=== PATIENT | female | born 1980 | race Caucasian/White ===

== ENCOUNTER 2017-06-11 07:26 | Day surgery (SDC) | payer BC ==
[2017-06-05 14:27] LABS: Absolute Lymphocytes (CBC) 2.6 K/uL (0.7-4.9); Absolute Monocytes 0.7 K/uL (0.1-1.3); Absolute Neutrophil 3.7 K/uL (1.8-8.0); Basophils % 0.6 % (0-1.3); Hematocrit 38.6 % (36.0-45.0); Lymphocytes % 36.3 % (15.3-44.8); MCH 22.2 pg (27.0-35.0); MCV 71.9 fL (80-100); MPV 10.2 fL (7.6-11.3); Monocytes % 9.9 % (3.3-12.3); RBC Red Blood Cell Count 5.37 M/uL (3.86-4.86)
[2017-06-11] MEDS ORDERED: Ringers Lactate 1,000 ML IV ONE (07:41)
[2017-06-11] MEDS ORDERED: LIDOCAINE 1% MPF 5 ML VIAL ONE (07:45)
[2017-06-11] MEDS ORDERED: MIDAZOLAM HCL 2 MG/2 ML INJ ONE ×2 (07:45→08:39)
[2017-06-11] MEDS ORDERED: PROPOFOL 200 MG/20 ML VIAL IV ONE (07:45)
[2017-06-11] MEDS ORDERED: FENTANYL CITR 100 MCG/2 ML ONE (07:46)
[2017-06-11 07:49] VITALS: O2SAT 100
[2017-06-11] MEDS ORDERED: NA CHLORIDE 0.9% 1,000 ML ONE (07:56)
[2017-06-11] MEDS ORDERED: LIDOCAINE 1% W/EPI 1:100,000 MDV 50 ML VIAL ONE (07:56)
[2017-06-11] MEDS ORDERED: KETOROLAC 30 MG/ML INJ ONE (08:46)
[2017-06-11] MEDS ORDERED: ONDANSETRON 4 MG/2 ML VIAL ONE (08:46)
[2017-06-11] MEDS ORDERED: PROMETHAZINE 25 MG/ML VIAL ONE (09:00)
[2017-06-11] MEDS ORDERED: MEPERIDINE HCL 25 MG/0.5 ML ONE (09:01)
[2017-06-11 10:05] VITALS: BP 104/56; TEMP 97.4
--- NOTE | 2017-06-11 20:20 | OP ---
Date of Procedure: 06/11/2017 Surgeon: Constance Larkin MD Preoperative Diagnoses: Heavy menstrual bleeding and anemia. Postoperative Diagnoses: Heavy menstrual bleeding and anemia. Procedures Performed: Hysteroscopy, dilation and curettage. Anesthesia: MAC plus paracervical block. Specimens: Endometrial curettings. Complications: No complications. Drains: No drains. Condition: The patient's condition is stable. Indications: The patient is a 36-year-old with heavy periods, thickened lining, need endometrial felicita pling due to the severe bleeding that she has. Due to the thickening, there was a possibility that t hey could be an intracavity lesion that needed polypectomy, so she was brought to the OR for hysteros copy and D and C. Description Of Procedure: After informed consent was verified, she was taken back to the OR, placed in a supine fashion on the operating table. After MAC was given, she was placed in a dorsal lithotom y position. Pelvic exam was performed. A speculum was used to expose the cervix, injected with 1% l idocaine with 1:100,000 epinephrine, 10 cc at 12 o'clock position, and 5 cc each at 4 and 8 o'clock p ositions of the cervicovaginal junction for a paracervical block. Prep x3 with Betadine was done. A nterior lip grasped with 2 Allis clamps. Direct hysteroscopy with a SlimLine hysteroscope 30-degree lens and normal saline was done. The uterine cavity was entered without any problems. The tubal ost ia were visualized on both sides. The endometrium appeared to be thickened globally. No intracavita ry lesions. The scope was pulled out. Curettings were performed. There was optimal amount of tissu e that was obtained for biopsy. The instruments were removed. Instrument, needle, and sponge counts were done and were correct at th e end of the case. The patient tolerated the procedure well. She was given Toradol prior to waking up. She will see me in 1 week for results. KARINA/RIO Voice ID: [id number] Report ID: [id number]
== END 2017-06-11 10:07 | disposition home or self-care (01) ==
LOC: OR 07:26
PROVIDERS: ATTEND Obstetrics & Gynecology
PROC: 0UJD8ZZ Inspection of Uterus and Cervix, Via Natural or Artificial Opening Endoscopic (ICD-10-PCS; 2017-06-11)
PROC: 0UDB7ZX Extraction of Endometrium, Via Natural or Artificial Opening, Diagnostic (ICD-10-PCS; principal; 2017-06-11 07:30)
DX: N92.0 Excessive and frequent menstruation with regular cycle (principal); D64.9 Anemia, unspecified; Z98.84 Bariatric surgery status; Z90.49 Acquired absence of other specified parts of digestive tract; Z80.41 Family history of malignant neoplasm of ovary; Z80.49 Family history of malignant neoplasm of other genital organs; Z83.3 Family history of diabetes mellitus; Z82.49 Family history of ischemic heart disease and other diseases of the circulatory system
CPT/HCPCS: 36415; 81025; 85025; 88305; J2175; J2250; J2405; J2550; J3010; J7030

== ENCOUNTER 2017-07-25 10:13 | Day surgery (SDC) | payer BC ==
[2017-07-22 11:48] LABS: Absolute Lymphocytes (CBC) 2.2 K/uL (0.7-4.9); Absolute Monocytes 0.6 K/uL (0.1-1.3); Absolute Neutrophil 3.8 K/uL (1.8-8.0); Basophils % 0.7 % (0-1.3); Eosinophils % 1.7 % (0-4.4); Hematocrit 36.4 % (36.0-45.0); Lymphocytes % 33.2 % (15.3-44.8); MCH 25.1 pg (27.0-35.0); MCV 76.9 fL (80-100); MPV 9.1 fL (7.6-11.3); Monocytes % 8.3 % (3.3-12.3); RBC Red Blood Cell Count 4.73 M/uL (3.86-4.86)
[2017-07-22 12:13] LABS: Urine Appearance CLEAR; Urine Bilirubin NEGATIVE (NEG); Urine Blood 3+ (NEG); Urine Color YELLOW; Urine Glucose NEGATIVE (NEG); Urine Protein NEGATIVE (NEG); Urine Specific Gravity 1.015 (1.005-1.030)
[2017-07-22 12:19] LABS: Urine Microscopic Reflex ORDER UMIC
[2017-07-22 12:44] LABS: Blood Morphology Comment NOT SEEN (NOT SEEN); Platelet Estimate ADEQ; Urine White Blood Cell Casts OK
[2017-07-22 12:47] LABS: Urine Bacteria <20 /HPF (<20); Urine Culture Reflex Order NOT NEEDED; Urine RBC >50 /HPF (NONE SEEN)
[2017-07-25] MEDS ORDERED: Ringers Lactate 1,000 ML IV ONE (10:27)
[2017-07-25] MEDS ORDERED: SCOPOLAMINE HYDROBROMIDE PATCH TD ONE (10:27)
[2017-07-25] MEDS ORDERED: CEFAZOLIN/SWI 1gm 0 GM/0 ML SYR ONE (10:27)
[2017-07-25] MEDS: CEFAZOLIN/SWI 2gm 2 GM/20 ML SYR IV SCH ×2 (11:25→12:55)
[2017-07-25] MEDS ORDERED: PROPOFOL 200 MG/20 ML VIAL IV ONE (12:32)
[2017-07-25] MEDS ORDERED: FENTANYL CITR 100 MCG/2 ML ONE ×3 (12:33→14:36)
[2017-07-25] MEDS ORDERED: ROCURONIUM 50 MG/5 ML VIAL IV ONE (12:33)
[2017-07-25] MEDS ORDERED: MIDAZOLAM HCL 2 MG/2 ML INJ ONE (12:34)
[2017-07-25] MEDS ORDERED: ONDANSETRON HCL 40 MG/20 ML VIAL ONE (12:34)
[2017-07-25] MEDS ORDERED: LIDOCAINE 1% MPF 2 ML AMPULE ONE (12:36)
[2017-07-25] MEDS: NA CHLORIDE 0.9% 1,000 ML ONE ×3 (12:44→13:02)
[2017-07-25] MEDS: Ringers Lactate 1,000 ML IV ONE ×2 (14:50→15:31)
[2017-07-25] MEDS ORDERED: GLYCOPYRROLATE 0.2 MG/ML SYR ONE (15:41)
[2017-07-25] MEDS ORDERED: NEOSTIGMINE 1 MG/ML -5 ML SYRINGE ONE (15:43)
[2017-07-25] MEDS: MORPHINE 4 MG/ML SYR ONE ×4 (16:50→17:07)
[2017-07-25] MEDS ORDERED: MEPERIDINE HCL 25 MG/0.5 ML ONE (17:13)
[2017-07-25] MEDS: MIDAZOLAM HCL 2 MG/2 ML INJ ONE ×2 (17:24→17:38)
[2017-07-25] MEDS ORDERED: ONDANSETRON 4 MG/2 ML VIAL ONE (18:09)
[2017-07-25] MEDS ORDERED: HYDROCODONE/APAP 5/325 MG TAB ONE (18:41)
[2017-07-25 18:48] VITALS: BP 126/71; TEMP 98.2; O2SAT 100
--- NOTE | 2017-07-26 03:08 | OP ---
Date of Procedure: 07/25/2017 Surgeon: Constance Larkin MD Network Infrastructure Architect: Melida Fisher. Preoperative Diagnoses: Pelvic pain, heavy periods, regular cycles, deep dyspareunia, and dysmenorrh ea. Postoperative Diagnoses: Pelvic pain, heavy periods, regular cycles, deep dyspareunia, and dysmenorr hea, right tubo-ovarian adhesions, right hydrosalpinx, and uterine prolapse. Procedures Performed: 1.Total laparoscopic hysterectomy, bilateral salpingectomy. 2.Lysis of right ovarian, tubal, and omental adhesions to the bladder and the uterus. 3.Uterosacral ligament suspension. 4.Colpopexy. 5.Cystoscopy. Anesthesia: General. Specimens: Uterus, bilateral tubes. Complications: None. Drains: None. Specimens: Uterus and tubes. Findings: Uterus was anteflexed, slightly enlarged. There were dense bladder adhesions to the oment um and the right ovary. The right tube and ovary were adhered to the anterior broad ligament, anteri or part of the uterus and these were all together adhered with the omentum. The ovary on the left side was unremarkable. The tube on the left side had adhesions to the anterior abdominal wall and left lower quadrant. The uterine prolapse was present. Her point C was 2 minus 3. After the hysterectomy was done, it was deemed to be necessary to do the suspension. If it was not then that would increase the risk of post hysterectomy wall prolapse, so we went ahead and did the procedure. Indications: The patient is a 36-year-old with heavy periods evaluated for her dysmenorrhea and pelv ic pain. She had 2 prior C-sections, counseled her on all options. She finally decided to have hyst erectomy, bilateral salpingectomy. After presenting all the recovery time and complications of the p rocedure, the patient wanted to proceed with this. Description Of Procedure: After informed consent was verified, she was brought back to the OR, 2 g o f Ancef was given, placed in supine fashion on the operating table after general anesthesia was given . Her arms were tucked by the side, and she was placed in a dorsal lithotomy position using Adalberto st irrups. Pelvic exam performed. Abdomen, vulva, vagina, and perineum prepped and draped in a sterile fashion. Isaac was placed to drain the bladder and attached to cystotubing and hooked up to an LR b ag with 300 cc empty. A large VCare was introduced in the uterus and fixed in place, and this area w as draped. A 1 cm infraumbilical incision was made with a scalpel. The fascia was dissected after being exposed . It was incised and tagged. The peritoneal cavity was entered. Danielle was introduced. Site of en try was checked. Upper abdominal surface was unremarkable. Minimal omental adhesions to the anterio r abdominal wall above the level of the umbilicus. However, below the level of the umbilicus, there were several adhesions starting in the left lower quadrant and midline anterior abdominal wall along the prior scar. Then there were dense omental adhesions to the ovary on the right side, wh ich seemed to be encased, and this was all attached to the bladder anteriorly. They were attached to the anterior broad ligament and anterior wall of the uterus. The tube and the round ligament were all entangled and very thickened. A 5 mm left lower quadrant and 10 mm suprapubic ports were placed under direct vision. Before the 10 mm was placed, the adhesions had to be taken down with a 5 mm port on the left side. A 5 mm LigaSur e was used to take this down. Sharp and blunt dissection were done and then the omentum was pulled d own from the area where the trocar would be placed. Once this was done, a 10 mm port was placed. We then performed a removal of adhesions systematically, push-spread technique had to be used to separa te the omentum from the peritoneum over the bladder. Once this was dissected, cautery was used appro priately to achieve hemostasis, but otherwise struck with the cutting part of the LigaSure. Then the adhesions were cut down from the bladder and retracted laterally. Then from the lateral aspect, the adhesions were taken down and retracted superiorly and medially. The posterior broad ligament adhes ions were opened up with the push-spread technique without any problems, and the peritoneum was accid entally opened up; however, took down the omentum from this area and retracted superiorly. The ovary was completely encased in the adhesions and so the ovary was dissected and retracted inferiorly, the tube had to be released from it in order for me to achieve this. So the tube had to be taken down w ith the help of the LigaSure from medial proximal and to the level of the adhesions. Once they were taken down, then ovary was densely attached to the right round ligament, so lateral to the ovary just inferior to the right round ligament, a window was made in the peritoneum, and window placed on the superior side and round ligament was cauterized and cut. However, the ovary had to be saved, so the ovary was dissected from anterior broad ligament in order to separate it inferiorly. Utero-ovarian l igament had to be taken down in order for this to happen. This took at least the first 50% of the ca se. The bladder adhesions were all released from the lower aspect of the uterine segment, that had g renaldo attached at the area of the low-transverse incision. Once these bladder adhesions were taken d own with push-spread technique and vesicovaginal space was entered, the bladder was dissected inferio rly. Then the hysterectomy was started. The left tubo-ovarian ligament, the right and the left utero-ovarian ligament, mesosalpinx, round lig ament were all taken down with the LigaSure, broad ligament and both leads were opened up. The anter ior was already dissected, so posterior broad was dissected to the level of the left uterosacral, the n vessels were skeletonized to isolate the vessels. On the opposite side, a similar dissection was performed to open up the posterior peritoneum, taken t o the level of the distal right uterosacral ligament. Then anteriorly, the broad ligament was opened up, and it was taken down to join the bladder flap. Once this was done, we moved down to retract th e bladder inferiorly on all aspects then went back up to skeletonize the broad ligament on the right side. The vessels were identified. The vessels were taken down on the right side first then on the left side. Cardinal ligaments were also taken on both sides. The vessels on the left side were also taken down. Circumferential colpotomy was performed to detach specimen. On the left side there was an area right above the uterosacral that appeared to be thickened, but no amount of cervix was left here. This was completely vaginal epithelium. Once this was completed, removal of the uterus, tubes were dissected laterally from the anterior abdominal wall, the broad ligament opened up to take down the blood supply to the tubes, then the tubes were pressured on the left side then the right side ta yannick down the distal hydrosalpinx. Once all the specimens were detached, they were removed through t he suprapubic port after draining the hydrosalpinx on the right side, it was pulled out. Thorough irrigation and suction were performed. The ureters were in their anatomical location withou t any distortion as were confirmed at the beginning of the case even after the hysterectomy was done, and the vaginal cuff closure was done after the vaginal occlusion bulb was placed with the help of 0 Vicryl simple stitches on both ends and [id number] in the middle. Since there was uterine vagi nal wall prolapse even after this was done, the uterosacral ligaments were reattached to the posterio r rectovaginal septum with the help of 0 Vicryl suture that went from the left distal uterosacral lig ament, posterior rectovaginal septum, and the right uterosacral ligament. Once all these were tied d own, there was excellent support of the vaginal cuff. The apex was at -7. The patient did very well . The pedicles were all visualized and were completely hemostatic. All the trocars were removed under direct vision. There was no electrical, mechanical, or thermal in jury to the ureters. The fascia was closed with the umbilicus after removing all the trocars under d irect vision without any complications with 0 Vicryl, using the sutures that were placed to retain to hook to the fascial edges, 4-0 Vicryl interrupted to close the incisions. Before this was done, josiah t on to perform a cystoscopy. The cystoscopy was performed with a 30-degree lens, normal saline for distention medium, and there was excellent efflux of urine from both ureteric orifices. No evidence of any other bladder trauma or foreign bodies. However, on the internal urethral meatus on the right side there appeared to be a little flap of question for, suspicious for TCC. So, I took a picture. The urethra was unremarkable. Bladder was drained. The vaginal occlusion bulb was removed. Isaac was left. The patient tolerated the procedure well. Instrument, needle, and sponge counts x3 were correct at t he end of the case. She will recover and be discharged home, and she will follow up with me in 1 week. LORETTA Voice ID: [id number] Report ID: [id number]
== END 2017-07-25 19:32 | disposition home or self-care (01) ==
LOC: OR 10:13
PROVIDERS: ATTEND Obstetrics & Gynecology
PROC: 0UT74ZZ Resection of Bilateral Fallopian Tubes, Percutaneous Endoscopic Approach (ICD-10-PCS; 2017-07-25)
PROC: 0USG7ZZ Reposition Vagina, Via Natural or Artificial Opening (ICD-10-PCS; 2017-07-25)
PROC: 0DNU4ZZ Release Omentum, Percutaneous Endoscopic Approach (ICD-10-PCS; 2017-07-25)
PROC: 0UT94ZZ Resection of Uterus, Percutaneous Endoscopic Approach (ICD-10-PCS; principal; 2017-07-25 11:30)
DX: N92.0 Excessive and frequent menstruation with regular cycle (principal); N81.4 Uterovaginal prolapse, unspecified; K66.0 Peritoneal adhesions (postprocedural) (postinfection); N94.12 Deep dyspareunia; N94.6 Dysmenorrhea, unspecified; N73.6 Female pelvic peritoneal adhesions (postinfective); N70.11 Chronic salpingitis; Z98.84 Bariatric surgery status; Z90.49 Acquired absence of other specified parts of digestive tract; Z80.41 Family history of malignant neoplasm of ovary; Z80.49 Family history of malignant neoplasm of other genital organs; Z83.3 Family history of diabetes mellitus; Z82.49 Family history of ischemic heart disease and other diseases of the circulatory system
CPT/HCPCS: 36415; 81003; 81015; 81025; 85025; 86850; 86900; 86901; 88307; J0690; J2001; J2175; J2250; J2405; J2710; J3010; J7030

== ENCOUNTER 2018-08-09 05:38 | Emergency (ER) | payer BC ==
--- OUTSIDE RECORDS SUMMARY | 2018-08-09 05:40 | XMS REPORT ---
:1980 Author Organization [facility] Address [address] [place] [address] Dr. Lobato [address] [place] [id number] Care Team Providers Name Role Phone Unavailable Unavailable Unavailable Problems This patient has no known problems. Allergies, Adverse Reactions, Alerts This patient has no known allergies or adverse reactions. Medications This patient has no known medications.
--- NOTE | 2018-08-09 06:15 | EDPHYS ---
Physician Documentation [facility] Name: Ariadna Okeefe Age: 37 yrs Sex: Female : 1980 Arrival Date: 08/09/2018 Time: 05:51 Bed 7 Private MD: ED Physician Sahil Rome HPI: 08/09 06:09 This 37 yrs old Female presents to ER via Ambulatory with complaints of Mouth kb Swelling. 06:09 The patient presents with swelling. The problem is located in the upper lip and lower kb lip. Onset: The symptoms/episode began/occurred 3 hour(s) ago. Duration: The symptoms are continuous, and are unchanged since they started. Modifying factors: The symptoms are alleviated by nothing, the symptoms are aggravated by nothing. Associated signs and symptoms: Pertinent positives: swelling, Pertinent negatives: anorexia, chills, dysphagia, fever, inability to eat, nausea, pain, redness in area, vomiting. Severity of symptoms: At their worst the symptoms were moderate, in the emergency department the symptoms are unchanged. The patient has not experienced similar symptoms in the past. The patient has not recently seen a physician. Pt reports her lips started swelling 3 hours ago. States she had margaritas, strawberries, and junk foods but nothing she hasn't had before. Denies any new substances. Denies shortness of breath, throat irritation. . 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 - Social history:: Smoking status: Patient/guardian denies using tobacco. - Ebola Screening: : No symptoms or risks identified at this time. ROS: 06:09 Constitutional: Negative for fever, chills, and weight loss, Neck: Negative for injury, kb pain, and swelling, Cardiovascular: Negative for chest pain, palpitations, and edema, Respiratory: Negative for shortness of breath, cough, wheezing, and pleuritic chest pain, Abdomen/GI: Negative for abdominal pain, nausea, vomiting, diarrhea, and constipation, Back: Negative for injury and pain, MS/Extremity: Negative for injury and deformity, Neuro: Negative for headache, weakness, numbness, tingling, and seizure. 06:09 ENT: Positive for lip swelling. Exam: 06:09 Constitutional: This is a well developed, well nourished patient who is awake, alert, kb and in no acute distress. Head/Face: Normocephalic, atraumatic. Chest/axilla: Normal chest wall appearance and motion. Nontender with no deformity. No lesions are appreciated. Cardiovascular: Regular rate and rhythm with a normal S1 and S2. No gallops, murmurs, or rubs. Normal PMI, no JVD. No pulse deficits. Respiratory: Lungs have equal breath sounds bilaterally, clear to auscultation and percussion. No rales, rhonchi or wheezes noted. No increased work of breathing, no retractions or nasal flaring. Abdomen/GI: Soft, non-tender, with normal bowel sounds. No distension or tympany. No guarding or rebound. No evidence of tenderness throughout. MS/ Extremity: Pulses equal, no cyanosis. Neurovascular intact. Full, normal range of motion. Neuro: Awake and alert, GCS 15, oriented to person, place, time, and situation. Cranial nerves II-XII grossly intact. Motor strength 5/5 in all extremities. Sensory grossly intact. Cerebellar exam normal. Normal gait. 06:09 ENT: Mouth: Lips: swelling, Posterior pharynx: is normal, airway is patent. Vital Signs: 06:01 BP 153 / 89; Pulse 73; Resp 18; Temp 97.9; Pulse Ox 100% on R/A; Weight 122.47 kg; lp1 Height 5 ft. 8 in. (172.72 cm); Pain 6/10; 06:01 Body Mass Index 41.05 (122.47 kg, 172.72 cm) lp1 MDM: 05:54 Patient medically screened. kb 06:13 Data reviewed: vital signs, nurses notes. Data interpreted: Pulse oximetry: on room air kb is 100 %. Interpretation: normal. Counseling: I had a detailed discussion with the patient and/or guardian regarding: the historical points, exam findings, and any diagnostic results supporting the discharge/admit diagnosis, the need for outpatient follow up, a family practitioner, to return to the emergency department if symptoms worsen or persist or if there are any questions or concerns that arise at home. Administered Medications: 06:26 Drug: Benadryl 25 mg Route: PO; aa1 06:28 Follow up: Response: Medication administered at discharge. aa1 06:28 Drug: Pepcid 20 mg Route: PO; aa1 06:29 Follow up: Response: Medication administered at discharge. aa1 06:28 Drug: predniSONE 40 mg Route: PO; aa1 06:29 Follow up: Response: Medication administered at discharge. aa1 Disposition: 08/09/18 06:14 Discharged to Home. Impression: Localized swelling, mass and lump, head - lips. - Condition is Stable. - Discharge Instructions: Allergies, [id number]. - Prescriptions for Pepcid 20 mg Oral Tablet - take 1 tablet by ORAL route every 12 hours for 5 days; 10 tablet. Prednisone 20 mg Oral Tablet - take 1 tablet by ORAL route once daily for 5 days; 5 tablet. - Medication Reconciliation Form, Thank You Letter, Antibiotic Education, Prescription Opioid Use form. - Follow up: Emergency Department; When: As needed; Reason: Worsening of condition. Follow up: Private Physician; When: 2 - 3 days; Reason: Recheck today's complaints, Continuance of care, Re-evaluation by your physician. Addendum: 08/12/2018 16:40 Co-signature as Attending Physician, Sahil Rome MD I agree with the assessment and t w4 plan of care. Signatures: Sri Guardado, LAISHA-C PRINTING WORKER SUPERVISOR-Ckb Tamy Acevedo RN RN aa1 Federica Morillo RN RN 1 Sahil Rome MD MD tw4 Corrections: (The following items were deleted from the chart) 08/09 06:13 06:09 ENT: Mouth: Lips: swelling, kb kb 06:32 06:14 08/09/2018 06:14 Discharged to Home. Impression: Localized swelling, mass and aa1 lump, head - lips. Condition is Stable. Forms are Medication Reconciliation Form, Thank You Letter, Antibiotic Education, Prescription Opioid Use. Follow up: Emergency Department; When: As needed; Reason: Worsening of condition. Follow up: Private Physician; When: 2 - 3 days; Reason: Recheck today's complaints, Continuance of care, Re-evaluation by your physician. kb
--- NOTE | 2018-08-09 06:15 | ER ---
Nurse's Notes [facility] Name: Ariadna Okeefe Age: 37 yrs Sex: Female : 1980 Arrival Date: 08/09/2018 Time: 05:51 Bed 7 Private MD: Diagnosis: Localized swelling, mass and lump, head-lips Presentation: 08/09 06:00 Presenting complaint: Patient states: Noticed about 2:30, lips began swelling; States lp1 burning sensation to inside of lips; Denies any shortness of breath, tongue swelling. Transition of care: patient was not received from another setting of care. Onset of symptoms was August 09, 2018 at 02:30. Risk Assessment: Do you want to hurt yourself or someone else? Patient reports no desire to harm self or others. Initial Sepsis Screen: Does the patient meet any 2 criteria? No. Patient's initial sepsis screen is negative. Does the patient have a suspected source of infection? No. Patient's initial sepsis screen is negative. Care prior to arrival: None. 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 - Social history:: Smoking status: Patient/guardian denies using tobacco. - Ebola Screening: : No symptoms or risks identified at this time. Screenin:03 Abuse screen: Denies threats or abuse. Denies injuries from another. Nutritional lp1 screening: No deficits noted. Tuberculosis screening: No symptoms or risk factors identified. Fall Risk None identified. Assessment: 06:03 General: Appears in no apparent distress. Behavior is calm, cooperative. Pain: lp1 Complains of pain in mouth Pain currently is 6 out of 10 on a pain scale. Neuro: No deficits noted. Cardiovascular: No deficits noted. Respiratory: Airway is patent. GI: No signs and/or symptoms were reported involving the gastrointestinal system. : No signs and/or symptoms were reported regarding the genitourinary system. EENT: Oral mucosa is moist. lips swelling. Throat is clear. Derm: Skin is pink, warm \T\ dry. Musculoskeletal: No deficits noted. 06:29 Reassessment: Patient appears in no apparent distress at this time. Patient is alert, aa1 oriented x 3, equal unlabored respirations, skin warm/dry/pink. Discussed d/c \T\ f/u instructions with pt \T\ family; denies questions or concerns at this time. Vital Signs: 06:01 BP 153 / 89; Pulse 73; Resp 18; Temp 97.9; Pulse Ox 100% on R/A; Weight 122.47 kg; lp1 Height 5 ft. 8 in. (172.72 cm); Pain 6/10; 06:01 Body Mass Index 41.05 (122.47 kg, 172.72 cm) lp1 ED Course: 05:51 Patient arrived in ED. am2 05:54 Sri Guardado [facility]C [facility] kb 05:54 Sahil Rome MD is Attending Physician. kb 06:01 Triage completed. lp1 06:02 Arm band placed on left wrist. lp1 06:04 Patient has correct armband on for positive identification. lp1 06:04 No provider procedures requiring assistance completed. lp1 06:21 Tamy Acevedo, RN is Primary Nurse. aa1 06:29 Patient did not have IV access during this emergency room visit. aa1 Administered Medications: 06:26 Drug: Benadryl 25 mg Route: PO; aa1 06:28 Follow up: Response: Medication administered at discharge. aa1 06:28 Drug: Pepcid 20 mg Route: PO; aa1 06:29 Follow up: Response: Medication administered at discharge. aa1 06:28 Drug: predniSONE 40 mg Route: PO; aa1 06:29 Follow up: Response: Medication administered at discharge. aa1 Outcome: 06:14 Discharge ordered by . kb 06:29 Discharged to home ambulatory, with family. aa1 06:29 Condition: good 06:29 Discharge instructions given to patient, Instructed on discharge instructions, follow up and referral plans. medication usage, Demonstrated understanding of instructions, follow-up care, medications, Prescriptions given X 2. 06:32 Patient left the ED. aa1 Signatures: Sri Guardado FNP-C FNP-Ckb Tamy Acevedo, BHUPINDER RN aa1 Federica Morillo RN RN lp1 Melodie Peguero am2
[2018-08-09] MEDS ORDERED: predniSONE 20 MG TAB ONE (06:38)
[2018-08-09] MEDS ORDERED: DIPHENHYDRAMINE 25 MG TAB/CAP ONE (06:38)
[2018-08-09] MEDS ORDERED: FAMOTIDINE 20 MG TAB ONE (06:39)
[2018-08-09 06:44] VITALS: BP 153/89; TEMP 97.9; O2SAT 100
== END 2018-08-09 06:32 | disposition home or self-care (01) ==
LOC: ER 05:38
DX: R22.0 Localized swelling, mass and lump, head (principal); F41.9 Anxiety disorder, unspecified
CPT/HCPCS: 99283; J7512